=== PATIENT | female | born 1955 | race Caucasian/White ===

== ENCOUNTER 2018-02-02 15:06 | Emergency (ER) | payer SELFPAY ==
--- NOTE | 2018-02-02 17:22 | EDPHYS ---
Physician Documentation [facility] Name: America Mendez Age: 62 yrs Sex: Female : 1955 Arrival Date: 02/02/2018 Time: 15:10 Bed 20 Private MD: Oh Melton E ED Physician Rei Aguirre HPI: 02/02 17:11 This 62 yrs old Female presents to ER via Ambulatory with complaints of Back rn Pain. 17:11 The patient presents with pain that is chronic. The symptoms are located in the low rn back. 17:12 Onset: The symptoms/episode began/occurred 1 month(s) ago. The pain radiates to the rn left leg. Modifying factors: The patient symptoms are alleviated by heat application, Severity of symptoms: At their worst the symptoms were moderate, in the emergency department the symptoms have improved. The patient has experienced similar episodes in the past. Reports chronic back pain, got worse over last few weeks/month, radiates down left leg, no weakness, pain stops at knee, no trauma, + previous back surgery, given steroids/hydrocodone/muscle relaxer/gabapentin.. Historical: - Allergies: 15:31 Codeine; hj 15:31 PENICILLINS; hj - Home Meds: 15:31 carvedilol 12.5 mg oral tab 1 tab 2 times per day [Active]; gabapentin oral oral hj [Active]; amlodipine oral [Active]; Hydrochlorothiazide Oral [Active]; Nexium Oral [Active]; citalopram oral [Active]; - PMHx: 15:31 Bronchitis; Hypertension; neuropathy; RLS; hj - PSHx: 15:31 Hysterectomy; back sx; hj - Immunization history:: Adult Immunizations up to date. - Family history:: not pertinent. - Social history:: Smoking status: Patient/guardian denies using tobacco. - Hospitalizations: : No recent hospitalization is reported. ROS: 17:12 Constitutional: Negative for fever, chills, and weight loss, Eyes: Negative for injury, rn pain, redness, and discharge, Neck: Negative for injury, pain, and swelling, Cardiovascular: Negative for chest pain, palpitations, and edema, Respiratory: Negative for shortness of breath, cough, wheezing, and pleuritic chest pain, Abdomen/GI: Negative for abdominal pain, nausea, vomiting, diarrhea, and constipation, Back: Negative for injury MS/Extremity: Negative for injury and deformity, Skin: Negative for injury, rash, and discoloration, Neuro: Negative for headache, weakness, numbness, tingling, and seizure. Exam: 17:12 Constitutional: This is a well developed, well nourished patient who is awake, alert, rn and in no acute distress. Head/Face: Normocephalic, atraumatic. Eyes: Pupils equal round and reactive to light, extra-ocular motions intact. Lids and lashes normal. Conjunctiva and sclera are non-icteric and not injected. Cornea within normal limits. Periorbital areas with no swelling, redness, or edema. Neck: Trachea midline, no thyromegaly or masses palpated, and no cervical lymphadenopathy. Supple, full range of motion without nuchal rigidity, or vertebral point tenderness. No Meningismus. Abdomen/GI: Soft, non-tender, with normal bowel sounds. No distension or tympany. No guarding or rebound. No evidence of tenderness throughout. Back: No spinal tenderness. MS/ Extremity: Pulses equal, no cyanosis. Neurovascular intact. Full, normal range of motion. Equal circumference. Neuro: Awake and alert, GCS 15, oriented to person, place, time, and situation. Cranial nerves II-XII grossly intact. Motor strength 5/5 in all extremities. Sensory grossly intact. Vital Signs: 15:32 BP 111 / 74; Pulse 72; Resp 18; Temp 98.3(TE); Pulse Ox 100% on R/A; Weight 88.45 kg; hj Height 5 ft. 4 in. (162.56 cm); Pain 10/10; 17:00 BP 122 / 76; Pulse 75; Resp 18; Pulse Ox 99% on R/A; Pain 8/10; em 15:32 Body Mass Index 33.47 (88.45 kg, 162.56 cm) hj MDM: 16:50 Patient medically screened. rn 17:12 ED course: Reports has u/s to rule out DVT 2 weeks ago. . rn 17:16 Differential diagnosis: arthritis, chronic back pain, Osteoarthritis sprain. Data rn reviewed: vital signs, nurses notes, and as a result, I will discharge patient. Counseling: I had a detailed discussion with the patient and/or guardian regarding: the historical points, exam findings, and any diagnostic results supporting the discharge/admit diagnosis, the need for outpatient follow up, to return to the emergency department if symptoms worsen or persist or if there are any questions or concerns that arise at home. ED course: Pt with chronic back pain, no signs of cord compression, already on steroids/muscle relaxer/gabapentin, has been ruled out for DVT, no new trauma, spoke with nurse at her clinic, recommended outpt MRI lumbar spine, will place on medrol dose pack, and antiinflammatory medication with pcp f/u. . 02/02 17:16 Order name: Urine Dipstick--Ancillary (enter results); Complete Time: 17:35 bd 02/02 15:33 Order name: Urine Dipstick-Ancillary (obtain specimen); Complete Time: 17:22 Administered Medications: No medications were administered Disposition: 02/02/18 17:21 Discharged to Home. Impression: Low back pain, Neuropathy, Radiculopathy, lumbosacral region. - Condition is Stable. - Discharge Instructions: Back Pain, Adult, Chronic Back Pain, Lumbosacral Radiculopathy, Musculoskeletal Pain, Back Exercises, Gguo-hi-Dwld, Heat Therapy. - Prescriptions for Medrol (Jamel) 4 mg Oral Tablets, Dose Pack - take 1 tablet by ORAL route as directed - follow package instructions; 1 packet. orphenadrine citrate 100 mg Oral Tablet Sustained Release - take 1 tablet by ORAL route 2 times per day As needed; 20 tablet. Macrobid 100 mg Oral Capsule - take 1 capsule by ORAL route every 12 hours for 10 days; 20 capsule. - Medication Reconciliation Form, Thank You Letter, Antibiotic Education, Prescription Opioid Use form. - Follow up: Oh Melton MD; When: As needed; Reason: Recheck today's complaints, Re-evaluation by your physician. - Problem is chronic. - Symptoms are unchanged. Signatures: Dispatcher [employer] Oziel Stone LVN LVN em Nieto, Roman, MD MD rn Joaquin, Henry, RN RN hj
--- NOTE | 2018-02-02 17:22 | ER ---
Nurse's Notes [facility] Name: America Mendez Age: 62 yrs Sex: Female : 1955 Arrival Date: 02/02/2018 Time: 15:10 Bed 20 Private MD: Oh Melton E Diagnosis: Low back pain;Neuropathy;Radiculopathy, lumbosacral region Presentation: 02/02 15:27 Presenting complaint: Patient states: i have this back pain that moves to my legs and hj to my ankle; visited PCP and was Rx with UTI antibiotics but the pain is getting worse; denies nausea and vomiting, denies fever and chills;. Transition of care: patient was not received from another setting of care. Onset of symptoms was February 02, 2018. Care prior to arrival: None. 15:27 Method Of Arrival: Ambulatory 15:27 Acuity: ANAHI 3 hj Triage Assessment: 15:31 General: Appears in no apparent distress. uncomfortable, Behavior is calm, cooperative, hj appropriate for age. Pain: Complains of pain in left low back and right low back Pain radiates to right leg and left leg. Musculoskeletal: Capillary refill < 3 seconds, Range of motion:. Historical: - Allergies: 15:31 Codeine; hj 15:31 PENICILLINS; hj - Home Meds: 15:31 carvedilol 12.5 mg oral tab 1 tab 2 times per day [Active]; gabapentin oral oral hj [Active]; amlodipine oral [Active]; Hydrochlorothiazide Oral [Active]; Nexium Oral [Active]; citalopram oral [Active]; - PMHx: 15:31 Bronchitis; Hypertension; neuropathy; RLS; hj - PSHx: 15:31 Hysterectomy; back sx; hj - Immunization history:: Adult Immunizations up to date. - Family history:: not pertinent. - Social history:: Smoking status: Patient/guardian denies using tobacco. - Hospitalizations: : No recent hospitalization is reported. Screenin:26 Abuse screen: Denies threats or abuse. Nutritional screening: No deficits noted. em Tuberculosis screening: No symptoms or risk factors identified. Fall Risk None identified. Assessment: 16:51 General: Appears in no apparent distress. comfortable, Behavior is calm, cooperative. em Pain: Complains of pain in back Pain radiates to left leg Pain currently is 8 out of 10 on a pain scale. Quality of pain is described as tingling, Pain began 1 month. Neuro: Level of Consciousness is awake, alert, obeys commands, Oriented to person, place, time, situation, Moves all extremities. Speech is normal, Tingling in left leg Denies weakness in left leg. Cardiovascular: Capillary refill < 3 seconds Patient's skin is warm and dry. Respiratory: Airway is patent Respiratory effort is even, unlabored, Respiratory pattern is regular, symmetrical. GI: Abdomen is flat, Bowel sounds Reports nausea. : Reports incontinence, since 1 month. EENT: No signs and/or symptoms were reported regarding the EENT system. Derm: Skin is intact, Skin is pink, warm \T\ dry. Musculoskeletal: Range of motion: intact in all extremities. 17:42 Reassessment: Patient appears in no apparent distress at this time. Patient is alert, iw oriented x 3, equal unlabored respirations, skin warm/dry/pink. I agree with above assessment by Oziel Gill LVN. 17:50 Reassessment: Patient appears in no apparent distress at this time. Patient and/or em family updated on plan of care and expected duration. Pain level reassessed. Patient is alert, oriented x 3, equal unlabored respirations, skin warm/dry/pink. Vital Signs: 15:32 BP 111 / 74; Pulse 72; Resp 18; Temp 98.3(TE); Pulse Ox 100% on R/A; Weight 88.45 kg; hj Height 5 ft. 4 in. (162.56 cm); Pain 10/10; 17:00 BP 122 / 76; Pulse 75; Resp 18; Pulse Ox 99% on R/A; Pain 8/10; em 15:32 Body Mass Index 33.47 (88.45 kg, 162.56 cm) ED Course: 15:10 Patient arrived in ED. mr 15:10 Pelon Bowman MD is Private Physician. mr 15:10 Oh Melton MD is Private Physician. mr 15:29 Triage completed. hj 15:31 Arm band placed on right wrist. hj 16:44 Oziel Gill LVN is Primary Nurse. em 16:50 Rei Aguirre MD is Attending Physician. rn 17:19 Oh Melton MD is Referral Physician. rn 17:26 Patient has correct armband on for positive identification. Bed in low position. Call em light in reach. Side rails up X2. Adult w/ patient. 17:26 No provider procedures requiring assistance completed. Patient did not have IV access em during this emergency room visit. Administered Medications: No medications were administered Outcome: 17:21 Discharge ordered by . rn 17:59 Discharged to home via wheelchair. em 17:59 Condition: good 17:59 Discharge instructions given to patient, Instructed on discharge instructions, follow up and referral plans. medication usage, Demonstrated understanding of instructions, follow-up care, medications, Prescriptions given X 3. 18:01 Patient left the ED. em Signatures: Nelli Castle Jairo, Oziel, HEALTH PROMOTION SPECIALIST HEALTH PROMOTION SPECIALIST em Coleen Ren RN RN iw Nieto, Roman, MD MD rn Joaquin, Henry, RN RN hj Corrections: (The following items were deleted from the chart) 15:34 15:32 Pulse 72bpm; Resp 18bpm; Pulse Ox 100% RA; Temp 98.3F Temporal; 88.45 kg; Height hj 5 ft. 4 in.; BMI: 33.4; Pain 10/10; hj
[2018-02-02 17:31] LABS: Urine Blood NEGATIVE (NEG); Urine Glucose TRACE (NEG); Urine Protein NEGATIVE (NEG); Urine Specific Gravity 1.025 (1.005-1.030)
[2018-02-02 18:06] VITALS: TEMP 98.3
[2018-02-02 18:07] VITALS: BP 122/76; O2SAT 99
== END 2018-02-02 18:01 | disposition home or self-care (01) ==
LOC: ER 15:06
DX: M54.17 Radiculopathy, lumbosacral region (principal); G62.9 Polyneuropathy, unspecified; I10 Essential (primary) hypertension; Z88.0 Allergy status to penicillin; Z88.5 Allergy status to narcotic agent
CPT/HCPCS: 81003; 99282

== ENCOUNTER 2018-08-18 13:58 | Emergency (ER) | payer SELFPAY ==
--- OUTSIDE RECORDS SUMMARY | 2018-08-18 14:11 | XMS REPORT | Continuity of Care Document ---
:1955 Author Organization Interface Problems Problem Status Onset Date Classification Date Comments Source Reported Medications Medication Details Route Status Patient Ordering Order Source Instructions Provider Date Allergies, Adverse Reactions, Alerts Substance Category Reaction Severity Reaction Status Date Comments Source type Reported Immunizations Immunization Date Given Site Status Last Updated Comments Source Results Order Results Value Reference Date Interpretation Comments Source Name Range Vital Signs Vital Sign Value Date Comments Source Encounters Location Location Encounter Encounter Reason Attending ADM DC Status Source Details Type Number For Provider Date Date Visit Outpatient [id number] MARY CARMEN 03/10 [facility] [place] Outpatient [id number] MARY CARMEN 04/07 [place] [address] [place] Procedures Procedure Code Date Perfomer Comments Source
--- NOTE | 2018-08-18 14:29 | EDPHYS ---
Physician Documentation [facility] Name: America Mendez Age: 62 yrs Sex: Female : 1955 Arrival Date: 08/18/2018 Time: 14:01 Bed 23 Private MD: ED Physician Talha Floyd HPI: 08/18 19:45 This 62 yrs old Female presents to ER via Ambulatory with complaints of gs Insect Bite. 19:45 The patient presents with an abscess of the left axilla. Description: The affected area gs is very small, confluent, erythematous, INDURATED. Onset: The symptoms/episode began/occurred 2 day(s) ago. Associated signs and symptoms: Pertinent negatives: fever. Modifying factors: the symptoms are aggravated by squeezing the lesion and expressing the contents, touching. Severity of symptoms: At their worst the symptoms were moderate, in the emergency department the symptoms are unchanged. The patient has experienced similar episodes in the past, a few times. Historical: - Allergies: 14:04 Codeine; la1 14:04 PENICILLINS; la1 - PMHx: 14:04 Bronchitis; Hypertension; neuropathy; RLS; la1 - Immunization history:: Adult Immunizations up to date. - Social history:: Smoking status: Patient/guardian denies using tobacco. - Ebola Screening: : No symptoms or risks identified at this time. ROS: 19:45 All other systems are negative. gs Exam: 19:45 Head/Face: Normocephalic, atraumatic. Eyes: Pupils equal round and reactive to light, gs extra-ocular motions intact. Lids and lashes normal. Conjunctiva and sclera are non-icteric and not injected. Cornea within normal limits. Periorbital areas with no swelling, redness, or edema. ENT: Nares patent. No nasal discharge, no septal abnormalities noted. Tympanic membranes are normal and external auditory canals are clear. Oropharynx with no redness, swelling, or masses, exudates, or evidence of obstruction, uvula midline. Mucous membranes moist. Neck: Trachea midline, no thyromegaly or masses palpated, and no cervical lymphadenopathy. Supple, full range of motion without nuchal rigidity, or vertebral point tenderness. No Meningismus. Cardiovascular: Regular rate and rhythm with a normal S1 and S2. No gallops, murmurs, or rubs. Normal PMI, no JVD. No pulse deficits. Respiratory: Lungs have equal breath sounds bilaterally, clear to auscultation and percussion. No rales, rhonchi or wheezes noted. No increased work of breathing, no retractions or nasal flaring. Abdomen/GI: Soft, non-tender, with normal bowel sounds. No distension or tympany. No guarding or rebound. No evidence of tenderness throughout. Back: No spinal tenderness. No costovertebral tenderness. Full range of motion. Skin: Warm, dry with normal turgor. Normal color with no rashes, no lesions, and no evidence of cellulitis. MS/ Extremity: Pulses equal, no cyanosis. Neurovascular intact. Full, normal range of motion. Neuro: Awake and alert, GCS 15, oriented to person, place, time, and situation. Cranial nerves II-XII grossly intact. Motor strength 5/5 in all extremities. Sensory grossly intact. Cerebellar exam normal. Normal gait. 19:45 Constitutional: The patient appears alert, awake. 19:45 Chest/axilla: Inspection: abscess, that is small, of the left axilla Palpation: tenderness. 19:45 Skin: abscess, that is small, with induration. Vital Signs: 14:04 BP 142 / 96; Pulse 79; Resp 16; Temp 97.3; Pulse Ox 98% on R/A; Weight 90.72 kg; Height la1 5 ft. 4 in. (162.56 cm); 14:10 BP 147 / 97; Pulse 75; Resp 18; Pulse Ox 97% on R/A; tl3 14:04 Body Mass Index 34.33 (90.72 kg, 162.56 cm) la1 MDM: 14:23 Patient medically screened. gs 19:45 Differential diagnosis: abscess, cellulitis, insect bite. Data reviewed: vital signs, gs nurses notes. Counseling: I had a detailed discussion with the patient and/or guardian regarding: the historical points, exam findings, and any diagnostic results supporting the discharge/admit diagnosis, the need for outpatient follow up. Administered Medications: No medications were administered Disposition: 08/18/18 14:29 Discharged to Home. Impression: Cutaneous abscess of left axilla. - Condition is Stable. - Discharge Instructions: Skin Abscess. - Prescriptions for Clindamycin HCl 300 mg Oral Capsule - take 1 capsule by ORAL route every 8 hours for 7 days; 21 capsule. - Medication Reconciliation Form, Thank You Letter, Antibiotic Education, Prescription Opioid Use form. - Follow up: Private Physician; When: 2 - 3 days; Reason: Re-evaluation by your physician. Signatures: Diego Nelson, RN RN la1 Talha Floyd MD MD gs Viviane Thomas RN RN tl3 Corrections: (The following items were deleted from the chart) 14:38 14:29 08/18/2018 14:29 Discharged to Home. Impression: Cutaneous abscess of left tl3 axilla. Condition is Stable. Forms are Medication Reconciliation Form, Thank You Letter, Antibiotic Education, Prescription Opioid Use. Follow up: Private Physician; When: 2 - 3 days; Reason: Re-evaluation by your physician. gs
--- NOTE | 2018-08-18 14:29 | ER ---
Nurse's Notes [facility] Name: America Mendez Age: 62 yrs Sex: Female : 1955 Arrival Date: 08/18/2018 Time: 14:01 Bed 23 Private MD: Diagnosis: Cutaneous abscess of left axilla Presentation: 08/18 14:03 Presenting complaint: Patient states: I have had an insect bite in my right axilla for la1 the last week. Transition of care: patient was not received from another setting of care. Onset of symptoms was August 18, 2018. Risk Assessment: Do you want to hurt yourself or someone else? Patient reports no desire to harm self or others. Initial Sepsis Screen: Does the patient meet any 2 criteria? No. Patient's initial sepsis screen is negative. Does the patient have a suspected source of infection? No. Patient's initial sepsis screen is negative. Care prior to arrival: None. 14:03 Method Of Arrival: Ambulatory la1 14:03 Acuity: ANAHI 3 la1 Historical: - Allergies: 14:04 Codeine; la1 14:04 PENICILLINS; la1 - PMHx: 14:04 Bronchitis; Hypertension; neuropathy; RLS; la1 - Immunization history:: Adult Immunizations up to date. - Social history:: Smoking status: Patient/guardian denies using tobacco. - Ebola Screening: : No symptoms or risks identified at this time. Screenin:10 Abuse screen: Denies threats or abuse. Nutritional screening: No deficits noted. tl3 Tuberculosis screening: No symptoms or risk factors identified. Fall Risk None identified. Assessment: 14:10 General: Appears distressed, Behavior is anxious. Pain: Complains of pain in left tl3 axilla. Neuro: No deficits noted. Level of Consciousness is awake, alert, obeys commands. Cardiovascular: Patient's skin is warm and dry. Respiratory: Airway is patent. GI: No signs and/or symptoms were reported involving the gastrointestinal system. : No signs and/or symptoms were reported regarding the genitourinary system. EENT: No signs and/or symptoms were reported regarding the EENT system. Derm: Skin is intact, Skin is pink, warm \T\ dry. Abscess located on left axilla is dime sized, is red, is raised. Musculoskeletal: No signs and/or symptoms reported regarding the musculoskeletal system. Vital Signs: 14:04 BP 142 / 96; Pulse 79; Resp 16; Temp 97.3; Pulse Ox 98% on R/A; Weight 90.72 kg; Height la1 5 ft. 4 in. (162.56 cm); 14:10 BP 147 / 97; Pulse 75; Resp 18; Pulse Ox 97% on R/A; tl3 14:04 Body Mass Index 34.33 (90.72 kg, 162.56 cm) la1 ED Course: 14:01 Patient arrived in ED. as 14:04 Triage completed. la1 14:04 Arm band placed on right wrist. la1 14:05 Viviane Thomas, RN is Primary Nurse. tl3 14:08 Talha Floyd MD is Attending Physician. gs 14:10 Patient has correct armband on for positive identification. Bed in low position. Call tl3 light in reach. Side rails up X 1. Adult w/ patient. Pulse ox on. NIBP on. 14:10 No provider procedures requiring assistance completed. Patient did not have IV access tl3 during this emergency room visit. Administered Medications: No medications were administered Outcome: 14:29 Discharge ordered by . 14:37 Discharged to home ambulatory. tl3 14:37 Condition: good 14:37 Discharge instructions given to patient, family, Instructed on discharge instructions, follow up and referral plans. medication usage, Demonstrated understanding of instructions, follow-up care, medications, Prescriptions given X 1. 14:38 Patient left the ED. tl3 Signatures: Lizette Dotson Lee, RN RN la1 Talha Floyd MD MD Viviane Thomas RN RN tl3
[2018-08-18 14:52] VITALS: TEMP 97.3
[2018-08-18 14:53] VITALS: BP 147/97; O2SAT 97
== END 2018-08-18 14:38 | disposition home or self-care (01) ==
LOC: ER 13:58
DX: L02.412 Cutaneous abscess of left axilla (principal); I10 Essential (primary) hypertension; Z88.0 Allergy status to penicillin; Z88.5 Allergy status to narcotic agent
CPT/HCPCS: 99283